=== PATIENT | female | born 1940 | race Caucasian/White ===

== ENCOUNTER 2016-09-11 12:59 | Day surgery (SDC) | payer MEDICARE ==
[~2016-09-11] VITALS: Ht 157.5 cm; Wt 91.4 kg
[~2016-09-11 12:59] MED LIST: BENADRYL25 MG PO; CEPACOL SORE T1 EAC1 PO; DIOVAN160 MG PO; DIPROSONE TP; DULCOLAX-DPS5 MG PO; FLEXERIL DPS5 MG PO; KLOR-CON M2020 ME1 PO; LASIX DPS20 MG PO; LEVAQUIN DPS750 MG PO; LOPRESSOR DPS50 MG PO; LOTRIMIN DPS15 GM TP; MAALOX DPS30 ML PO; MICRO-K DPS10 MEQ PO; MILK OF MAGNESI10 ML PO; MIRAPEX DPS0.25 MG PO; MIRAPEX0.125 MG PO; NORCO 5-325 TA1 EACH PO; NUCYNTA50 MG PO; PEPCID DPS20 MG PO; PRAMIPEXOLE0.125 MG; PROVENTIL2.5 MG/3 M IH; ROBITUSSIN100 MG/5 M PO; SURFAK DPS240 MG PO; TIAZAC180 MG PO; TRIAMTERENE-HC1 EAC3 PO; TUMS DPS500 MG PO; TYLENOL DPS325 MG PO; TYLENOL325 MG PO; VITAMIN D2000 UNI1 PO
== END 2016-09-11 15:44 | disposition home or self-care (01) ==
LOC: RAD.S 12:59 → EDSTATUS 14:00 → RAD.S 14:00
PROC: 0WBF3ZX Excision of Abdominal Wall, Percutaneous Approach, Diagnostic (ICD-10-PCS; principal; 2016-09-11)
DX: R19.01 Right upper quadrant abdominal swelling, mass and lump (principal); Z88.1 Allergy status to other antibiotic agents; Z79.899 Other long term (current) drug therapy